=== PATIENT | male | born 1975 | race Caucasian/White ===

== ENCOUNTER 2021-09-13 18:25 | Emergency (ER) | payer SELFPAY ==
[~2021-09-13] VITALS: Ht 175.3 cm; Wt 96.0 kg
[2021-09-13] MEDS ORDERED: MORPHINE SULFATE 4 MG/ML CPJ (NOT FOR IM USE) IV ONE ×2 (19:15→21:15)
[2021-09-13] MEDS ORDERED: KETOROLAC 15MG/ML VIAL IV ONE (19:15)
[2021-09-13] MEDS ORDERED: ONDANSETRON HCL 4MG/2ML INJ IV ONE ×4 (21:00→23:30)
[2021-09-13] MEDS ORDERED: PROPOFOL 200MG/20ML VIAL IV ONE ×3 (21:00→23:30)
[2021-09-13] MEDS ORDERED: KETAMINE HCL 50 MG/ML 10ML IV ONE (23:30)
[2021-09-14] MEDS ORDERED: ONDANSETRON HCL 4MG/2ML INJ IV ONE (00:30)
[2021-09-14] MEDS ORDERED: PROPOFOL 200MG/20ML VIAL IV ONE (00:30)
[2021-09-14] MEDS ORDERED: HYDR-4009 MT (02:04)
[2021-09-14 11:06] VITALS: BP 116/73
== END 2021-09-14 10:26 | disposition home or self-care (01) ==
LOC: ER 18:25
DX: S52.592A Other fractures of lower end of left radius, initial encounter for closed fracture (principal); I49.8 Other specified cardiac arrhythmias; W01.0XXA Fall on same level from slipping, tripping and stumbling without subsequent striking against object, initial encounter; Y93.9 Activity, unspecified; Y92.9 Unspecified place or not applicable
CPT/HCPCS: 25605; 73090; 73100; 73110; 73130; 93005; 96374; 96375; 96376; 99152; 99285; J1885; J2270; J2405; J2704; J3490; Z7610

== ENCOUNTER 2021-09-18 11:53 | Emergency (ER) | payer SELFPAY ==
[~2021-09-18] VITALS: Ht 172.7 cm; Wt 75.0 kg
[~2021-09-18 11:53] MED LIST: HYDR-4009 MT
[2021-09-18] MEDS ORDERED: HYDROCODONE/ACETAMINOPHEN 10/325MG TABLET PO ONE (12:30)
[2021-09-18 12:37] VITALS: BP 124/72
[2021-09-18] MEDS ORDERED: HYDR-4001 MT (13:04)
== END 2021-09-18 13:28 | disposition home or self-care (01) ==
LOC: ER 11:53
DX: M79.602 Pain in left arm (principal); S52.592D Other fractures of lower end of left radius, subsequent encounter for closed fracture with routine healing; X58.XXXD Exposure to other specified factors, subsequent encounter
CPT/HCPCS: 29125; 99283